=== PATIENT | male | born 1975 | race Caucasian/White ===

== ENCOUNTER 2019-06-19 10:21 | Outpatient (CLI) | payer OTHER ==
[~2019-06-19 10:21] MED LIST: ULTRACET PO
== END 2019-06-19 10:52 | disposition home or self-care (01) ==
LOC: RAD 10:21
DX: R51 Headache (principal); E78.2 Mixed hyperlipidemia; Z13.89 Encounter for screening for other disorder; Z13.220 Encounter for screening for lipoid disorders; Z11.3 Encounter for screening for infections with a predominantly sexual mode of transmission; F17.200 Nicotine dependence, unspecified, uncomplicated; E66.8 Other obesity; J01.80 Other acute sinusitis

== ENCOUNTER 2023-08-23 09:26 | Outpatient (CLI) | payer OTHER | END 2023-08-23 09:37 | disposition home or self-care (01) | LOC: TOM 09:26 | PROVIDERS: ATTEND Specialist | DX: M25.50 Pain in unspecified joint (principal); R51.9 Headache, unspecified ==